=== PATIENT | female | born 1990 | race Caucasian/White ===

== ENCOUNTER 2020-07-11 03:41 | Emergency (ER) | payer OTHER ==
--- NOTE | 2020-07-11 04:03 | ED ---
General Adult HPI - General Stated complaint: Active Labor Time Seen by Provider: 07/11/20 03:49 Source: patient Mode of arrival: EMS Limitations: no limitations - History of Present Illness Initial comments: This patient is a 30-year-old woman, G3, P3, presenting with complaint that she believes she is in labor. The patient stated that she felt like her water broke yesterday. Tonight she noticed that she was having contractions there were getting closer together and they called EMS. EMS was transporting the patient to the labor and delivery unit when the patient precipitously delivered on arrival. Onset/Timin -: days(s) Location: abdomen Radiation: non-radiation Quality: other (Contractions) Consistency: intermittent Improves with: none Worsens with: none Associated Symptoms: denies other symptoms Treatments Prior to Arrival: none - Related Data Home Medications Medication Instructions Recorded Confirmed ALPRAZolam [Xanax] 2 mg PO TID PRN 05/25/15 05/25/15 Methylphenidate HCl [Ritalin] 20 mg PO QID 05/25/15 05/25/15 oxyCODONE HCL [Roxicodone] 30 mg PO TID PRN 05/25/15 05/25/15 Previous Rx's Medication Instructions Recorded Acetaminophen-Codeine 300-30mg 1 tab PO Q4H PRN #20 tablet 05/25/15 [Tylenol w/codeine #3] Allergies Allergy/AdvReac Type Severity Reaction Status Date / Time No Known Allergies Allergy Verified 05/25/15 13:13 Review of Systems ROS Statement: Those systems with pertinent positive or pertinent negative responses have been documented in the HPI. ROS Other: All systems not noted in ROS Statement are negative. Constitutional: Denies: fever, chills Respiratory: Denies: cough, dyspnea Cardiovascular: Denies: chest pain, palpitations, edema, syncope Gastrointestinal: Reports: abdominal pain. Denies: nausea, vomiting, diarrhea, constipation Genitourinary: Reports: as per HPI, other (Active labor) Musculoskeletal: Denies: back pain Skin: Denies: rash Neurological: Denies: headache, weakness Hematological/Lymphatic: Denies: easy bleeding Past Medical History Additional Past Medical History / Comment(s): Back pain; Herniated discs History of Any Multi-Drug Resistant Organisms: None Reported Past Surgical History: Adenoidectomy, Ear Surgery, Tonsillectomy Past Psychological History: ADD/ADHD, Anxiety Past Alcohol Use History: None Reported Past Drug Use History: None Reported General Exam General appearance: alert, in no apparent distress Head exam: Present: atraumatic, normocephalic Eye exam: Present: normal appearance. Absent: scleral icterus, conjunctival injection GI/Abdominal exam: Present: soft. Absent: distended, tenderness, guarding, rebound, rigid, mass, pulsatile mass External exam: Present: lacerations, other (Umbilical cord present.) Extremities exam: Present: normal inspection, normal capillary refill. Absent: pedal edema, calf tenderness Neurological exam: Present: alert Skin exam: Present: warm, dry, intact, normal color. Absent: rash Medical Decision Making - Medical Decision Making Patient is will directly to the trauma resuscitation room. Nursing staff was trying the baby while I suctioned. The umbilical cord was milked and clamped and then cut. At this point labor and delivery personnel had arrived and took the performing further warming, suctioning, and evaluation. Shortly af ter, the patient delivered placenta without complication. Labor and delivery personnel provided fundus massage. They were transferred to the labor and delivery unit. Disposition Clinical Impression: Normal spontaneous vaginal delivery Disposition: ADMITTED IP TO THIS HOSP Condition: Good Referrals: Gómez Salinas MD [Primary Care Provider] - 1-2 days
== END 2020-07-11 04:48 | disposition other institution (70) ==
LOC: EC 03:41
DX: O80 Encounter for full-term uncomplicated delivery (principal); Z37.0 Single live birth; Z3A.00 Weeks of gestation of pregnancy not specified; Z90.89 Acquired absence of other organs
CPT/HCPCS: 99284

== ENCOUNTER 2020-07-11 03:51 | Inpatient (IN) | payer OTHER ==
[2020-07-11 04:19] LABS: Basophils # (A) 0.1 k/uL (0-0.2); Basophils % (A) 0 %; Eosinophils # (A) 0.2 k/uL (0-0.7); Eosinophils % (A) 1 %; HCT 37.6 % (34.0-46.0); HGB 12.9 gm/dL (11.4-16.0); Lymphocytes # (A) 0.6 k/uL (1.0-4.8); Lymphocytes % (A) 3 %; MCH 30.2 pg (25.0-35.0); MCHC 34.3 g/dL (31.0-37.0); Monocytes # (A) 0.6 k/uL (0-1.0); Monocytes % (A) 3 %; Neutrophils # (A) 17.3 k/uL (1.3-7.7); Neutrophils % (A) 92 %; Platelet Count 158 k/uL (150-450); RBC 4.27 m/uL (3.80-5.40); RDW 12.8 % (11.5-15.5); WBC 18.9 k/uL (3.8-10.6)
[2020-07-11] MEDS ORDERED: ZOLPIDEM 5 MG TAB PO PRN (05:00)
[2020-07-11] MEDS ORDERED: ACETAMINOPHEN TAB 325 MG TAB PO PRN (05:00)
[2020-07-11] MEDS ORDERED: IBUPROFEN 600 MG TAB PO PRN (05:00)
[2020-07-11] MEDS ORDERED: LANOLIN CREAM 5 GM TUBE TOPICAL PRN (05:00)
[2020-07-11] MEDS ORDERED: BENZOCAINE/MENTHOL SPRAY 1 GM/SPRAY AEROSOL TOPICAL PRN (05:00)
[2020-07-11] MEDS ORDERED: OXYTOCIN 20 UNITS/1000 ML NS 1,000 ML IV SCH ×2 (05:00→05:51)
[2020-07-11] MEDS ORDERED: diphenhydrAMINE 50 MG/ML 1 ML VIAL IVP PRN ×2 (05:00)
[2020-07-11] MEDS ORDERED: SIMETHICONE 80 MG CHEWABLE PO PRN (05:00)
[2020-07-11] MEDS ORDERED: diphenhydrAMINE 50 MG CAP PO PRN (05:00)
[2020-07-11] MEDS ORDERED: HYDROCORTISONE 2.5% RECTAL CREAM 30 GM TUBE RECTAL PRN (05:00)
[2020-07-11] MEDS ORDERED: diphenhydrAMINE 25 MG CAP PO PRN (05:00)
[2020-07-11 05:14] LABS: Basophils % (A) 0 %; Eosinophils # (A) 0.1 k/uL (0-0.7); Eosinophils % (A) 1 %; HCT 35.3 % (34.0-46.0); HGB 12.2 gm/dL (11.4-16.0); Lymphocytes # (A) 0.6 k/uL (1.0-4.8); Lymphocytes % (A) 4 %; MCH 30.3 pg (25.0-35.0); MCHC 34.4 g/dL (31.0-37.0); Mean Platelet Volume 11.4; Monocytes # (A) 0.6 k/uL (0-1.0); Monocytes % (A) 3 %; Neutrophils # (A) 15.9 k/uL (1.3-7.7); Neutrophils % (A) 92 %; Platelet Count 131 k/uL (150-450); RBC 4.02 m/uL (3.80-5.40); RDW 12.8 % (11.5-15.5); WBC 17.3 k/uL (3.8-10.6)
--- NOTE | 2020-07-11 05:17 | P.HPOB ---
History of Present Illness H&P Date: 07/11/20 Chief Complaint: Delivery in ER This is a 30-year-old female 3 para 3 who presented by ambulance to the emergency room and delivered right as she arrived in the emergency room. She states that she went to [facility] and saw director learning a few times before she moved to this area. She states she moved here in February. She did have an ultrasound at [facility] a couple months ago. She states the original due date that [facility] gave her was July 22 and that [facility] told her the due date was July 31. She states her water broke 2 days ago at approximately 8 PM in the evening on July 09. She started feeling contractions yesterday. She states the pain got intense to the point that she felt she needed to call somebody about an hour before the ambulance arrived. She told the nursing staff that she does not have custody of her other 2 children. She delivered 1 child here at [facility] and another child at [facility]. The patient spontaneously delivered vaginally in the ER a viable male infant at 3:42 AM followed by the placenta at 3:46 AM. Infant scores are 8 at 1 minute and 9 at 5 minutes and weight is 6 pounds 7.7 ounces. There was a foul odor to the according to nursing staff. Infant has been taken to level I nursery for evaluation. Obstetrical history: P3. History of 2 vaginal deliveries at term prior to this . History of 1 vaginal delivery in the emergency room today. Gynecologic history: No history of sexually transmitted diseases. Review of Systems Constitutional: Denies chills, Denies fever Eyes: denies blurred vision, denies pain Ears, nose, mouth and throat: Denies headache, Denies sore throat Cardiovascular: Denies chest pain, Denies shortness of breath Respiratory: Denies cough Gastrointestinal: Reports abdominal pain Genitourinary: Reports pelvic pain, Reports (Immediately ) Musculoskeletal: Reports low back pain Integumentary: Denies pruritus, Denies rash Neurological: Denies numbness, Denies weakness Past Medical History Additional Past Medical History / Comment(s): Back pain; Herniated discs History of Any Multi-Drug Resistant Organisms: None Reported Past Surgical History: Adenoidectomy, Ear Surgery, Tonsillectomy Past Psychological History: ADD/ADHD, Anxiety Smoking Status: Current every day smoker Past Alcohol Use History: None Reported Past Drug Use History: None Reported - Past Family History Mother Family Medical History: Cancer (Lung cancer) Medications and Allergies Home Medications Medication Instructions Recorded Confirmed Type ALPRAZolam [Xanax] 2 mg PO TID PRN 05/25/15 05/25/15 History Acetaminophen-Codeine 300-30mg 1 tab PO Q4H PRN #20 tablet 05/25/15 Rx [Tylenol w/codeine #3] Methylphenidate HCl [Ritalin] 20 mg PO QID 05/25/15 05/25/15 History oxyCODONE HCL [Roxicodone] 30 mg PO TID PRN 05/25/15 05/25/15 History Allergies Allergy/AdvReac Type Severity Reaction Status Date / Time No Known Allergies Allergy Verified 07/11/20 04:04 Exam Osteopathic Statement: *. No significant issues noted on an osteopathic structural exam other than those noted in the History and Physical/Consult. Vital Signs Temp Pulse Resp BP 07/11/20 04:45 50 L 20 127/77 07/11/20 04:30 63 20 126/74 07/11/20 04:15 98.8 F 61 20 133/79 07/11/20 04:00 73 20 121/79 Intake and Output 07/10/20 07/10/20 07/11/20 14:59 22:59 06:59 Other: Weight 77.111 kg Gen.: Well-developed well-nourished white female who appears very drowsy and groggy and hard to arouse to answer questions HEENT: Poor dentition with only a few teeth Heart: Regular rate and rhythm Lungs: Clear to auscultation bilaterally Abdomen: Soft, mildly tender over her fundal region. Fundus is firm and just below the umbilicus Pelvic exam: Perineum is inspected and there are a few superficial cuts. One was bleeding minimally but the patient refused any stitches. No active vaginal bleeding is noted. Extremities: Lower extremities show 2+ pitting edema Results Result Diagrams: 07/11/20 04:10 Abnormal Lab Results - Last 24 Hours (Table) 07/11/20 Range/Units 04:10 WBC 18.9 H (3.8-10.6) k/uL Neutrophils # 17.3 H (1.3-7.7) k/uL Lymphocytes # 0.6 L (1.0-4.8) k/uL Assessment and Plan (1) Limited care in third trimester Current Visit: Yes Status: Acute Code(s): O09.33 - SUPRVSN OF PREG W INSUFFICIENT ANTENAT CARE, THIRD TRIMESTER SNOMED Code(s): 241401565 (2) Normal spontaneous vaginal delivery Current Visit: No Status: Acute Code(s): O80 - ENCOUNTER FOR FULL-TERM UNCOMPLICATED DELIVERY SNOMED Code(s): 85560878 Plan: Admission for care status post vaginal delivery in emergency room. Will obtain all labs and urine drug screen. Will consult social work case manager due to no custody of her other children. Baby will be evaluated in level I nursery due to prolonged rupture of membranes and limited care.
[2020-07-11] MEDS: LACTATED RINGERS 1,000 ML IV SCH ×3 (06:03→21:21)
[2020-07-11 10:06] LABS: Hepatitis B Surface Antigen Non-Reactive (Non-Reactive)
[2020-07-11] MEDS: SENNOSIDES-DOCUSATE SODIUM 1 EACH TAB PO SCH ×2 (12:27→21:21)
[2020-07-11] MEDS: ONDANSETRON 4 MG/2 ML VIAL IVP PRN ×2 (15:03→21:41)
[2020-07-11 16:33] LABS: Appearance,Urine Cloudy (Clear); Bilirubin,Urine Negative (Negative); Blood,Urine Moderate (Negative); Color,Urine Yellow; Glucose,Urine (UA) Negative (Negative); Ketones,Urine 3+ (Negative); Leukocyte Esterase,Urine Large (Negative); Mucus,Urine Occasional /hpf; Nitrite,Urine Negative (Negative); PH, Urine 6.5 (5.0-8.0); Protein,Urine 1+ (Negative); RBC,Urine >182 /hpf (0-5); Specific Gravity,Urine 1.031 (1.001-1.035); Squamous Epithelial Cell,Urine 2 /hpf (0-4); Urobilinogen,Urine <2.0 mg/dL (<2.0); WBC,Urine 44 /hpf (0-5)
[2020-07-11 16:34] LABS: Phencyclidine Screen,Urine Not Detected (NotDetected); Urn Cannabinoid Scrn Detected (NotDetected)
[2020-07-11 16:35] LABS: Amphetamine Screen,Urine Not Detected (NotDetected); Barbiturate Screen,Urine Not Detected (NotDetected); Benzodiazepines Screen,Urine Not Detected (NotDetected); Cocaine Screen,Urine Detected (NotDetected); Methadone Screen, Urine Not Detected (NotDetected); Opiate Screen,Urine Not Detected (NotDetected); Oxycodone Screen, Urine Not Detected (NotDetected); Tricyclic Antidepressant,Urine Not Detected (NotDetected)
[2020-07-12] MEDS: ONDANSETRON 4 MG/2 ML VIAL IVP PRN ×2 (04:27→09:07)
[2020-07-12] MEDS: LACTATED RINGERS 1,000 ML IV SCH ×2 (05:04→11:53)
[2020-07-12] MEDS ORDERED: GENTAMICIN PER PHARMACY MISCELLANE SCH (08:00)
[2020-07-12 08:16] LABS: Basophils % (A) 0 %; Eosinophils % (A) 0 %; HCT 33.5 % (34.0-46.0); HGB 11.1 gm/dL (11.4-16.0); Lymphocytes # (A) 1.3 k/uL (1.0-4.8); Lymphocytes % (A) 8 %; MCH 28.8 pg (25.0-35.0); MCHC 33.2 g/dL (31.0-37.0); MCV 86.7 fL (80.0-100.0); Mean Platelet Volume 12.6; Monocytes # (A) 0.5 k/uL (0-1.0); Monocytes % (A) 3 %; Neutrophils % (A) 88 %; Platelet Count 153 k/uL (150-450); RBC 3.87 m/uL (3.80-5.40); RDW 13.4 % (11.5-15.5)
[2020-07-12 08:25] LABS: African American GFR (CKD) >90 (>60 ml/min/1.73 sqM); Non-African American GFR(CKD) >90 (>60 ml/min/1.73 sqM)
--- NOTE | 2020-07-12 08:27 | P.PNOBGVD ---
Subjective - Subjective Patient reports: Reports appetite normal, Reports voiding normally, Reports pain well controlled, Reports ambulating normally, Reports nauseated, Reports other : doing well, in NICU Objective - Latest Vital Signs Latest vital signs: Vital Signs Temp Pulse Resp BP Pulse Ox 07/12/20 04:00 99.1 F 07/11/20 22:34 100 F H 57 L 18 119/63 96 07/11/20 15:34 99.3 F 56 L 18 113/68 07/11/20 12:34 99.8 F H 60 18 130/75 98 07/11/20 11:15 99.8 F H 07/11/20 08:57 99.3 F Intake and Output 07/11/20 07/12/20 07/12/20 22:59 06:59 14:59 Output Total 300 Balance -300 Output: Emesis 300 Other: # Voids 3 3 - Exam Lungs: bilateral: normal Chest: Normal S1, Normal S2 Extremities: Present: normal Abdomen: Present: normal appearance, soft Uterus: Present: normal, firm, tenderness - Labs Labs: Abnormal Lab Results - Last 24 Hours (Table) 07/11/20 Range/Units 16:10 Urine Appearance Cloudy H (Clear) Urine Protein 1+ H (Negative) Urine Ketones 3+ H (Negative) Urine Blood Moderate H (Negative) Ur Leukocyte Esterase Large H (Negative) Urine RBC >182 H (0-5) /hpf Urine WBC 44 H (0-5) /hpf Urine Mucus Occasional H (None) /hpf U Methamphetamines Scrn Detected H (NotDetected) Urine Cocaine Screen Detected H (NotDetected) U Marijuana (THC) Screen Detected H (NotDetected) Assessment and Plan Assessment: Hospital day #2. Patient is status post vaginal delivery in the emergency department (please see Dr. Obrien admission history and physical). In brief summary this patient was admitted with no care and precipitously delivered in the emergency department. Notes from the emergency department indicate that there was a foul odor at the time of delivery and patient was probably ruptured for at least 2 days. Patient's white blood cell count was elevated on admission and patient also has continued to have a low-grade temperature as high as 100. Yesterday I placed her on IV Ancef due to concern for endometritis. Patient's toxicology screen also has come back positive for cocaine, amphetamines, and marijuana. Patient continues to have some nausea and vomiting and examination shows mild uterine tenderness. She does not have any right lower quadrant tenderness. Patient's been very noncompliant with her care and she initially refused IV antibiotics for over 2 hours after they were ordered. She also refused to have her blood drawn this morning. After speaking to her I explained the importance of treating her endometritis and the need for following her white blood cell count and continuing IV antibiotics. At this point she is consented seen to having her blood redrawn. Because of the prolonged rupture and prolonged low-grade temperature with nausea and vomiting I'm going to add gentamicin to her antibiotic regimen. Once again, I explained all this to the patient. She continues to be resistant to being treated and oftentimes is inappropriately mean in to Hospital staff. Reports from the emergency department Dr. Obrien is that her placenta was completely removed. If however she continues to have temperatures with nausea and vomiting I am most likely will proceed with further imaging by abdominal pelvic CT. (1) Limited care in third trimester Current Visit: Yes Status: Acute Code(s): O09.33 - SUPRVSN OF PREG W INSUFFICIENT ANTENAT CARE, THIRD TRIMESTER SNOMED Code(s): 261815654 (2) Endometritis following delivery Current Visit: Yes Status: Acute Code(s): O86.12 - ENDOMETRITIS FOLLOWING DELIVERY SNOMED Code(s): 228396322 (3) Noncompliance by refusing intervention or support Current Visit: Yes Status: Acute Code(s): Z53.29 - PROC/TRTMT NOT CRD OUT BEC PT DECISION FOR OTH REASONS SNOMED Code(s): 609511328
[2020-07-12 08:42] LABS: Large Platelets Present
[2020-07-12] MEDS ORDERED: GENTAMICIN 120 MG in SODIUM CHLORIDE 0.9% 100 ML IVPB ONE (09:00)
[2020-07-12] MEDS: SENNOSIDES-DOCUSATE SODIUM 1 EACH TAB PO SCH ×2 (09:32→21:03)
[2020-07-12] MEDS: GENTAMICIN 120 MG in SODIUM CHLORIDE 0.9% 100 ML IVPB SCH (16:59)
[2020-07-13] MEDS: GENTAMICIN 120 MG in SODIUM CHLORIDE 0.9% 100 ML IVPB SCH ×3 (00:47→17:35)
[2020-07-13 04:41] LABS: Basophils % (A) 0 %; Eosinophils # (A) 0.3 k/uL (0-0.7); Eosinophils % (A) 2 %; HCT 36.4 % (34.0-46.0); HGB 12.1 gm/dL (11.4-16.0); Lymphocytes # (A) 2.9 k/uL (1.0-4.8); Lymphocytes % (A) 21 %; MCH 29.6 pg (25.0-35.0); MCHC 33.4 g/dL (31.0-37.0); MCV 88.7 fL (80.0-100.0); Mean Platelet Volume 10.3; Monocytes # (A) 0.5 k/uL (0-1.0); Monocytes % (A) 4 %; Neutrophils % (A) 73 %; Platelet Count 167 k/uL (150-450); RDW 12.9 % (11.5-15.5); WBC 13.8 k/uL (3.8-10.6)
[2020-07-13 05:00] LABS: African American GFR (CKD) >90 (>60 ml/min/1.73 sqM); Non-African American GFR(CKD) >90 (>60 ml/min/1.73 sqM)
--- NOTE | 2020-07-13 06:49 | P.PNOBGVD ---
Subjective - Subjective Patient reports: Reports appetite normal, Reports voiding normally, Reports pain well controlled, Reports ambulating normally : doing well, in NICU Objective - Latest Vital Signs Latest vital signs: Vital Signs Temp Pulse Resp BP Pulse Ox 07/13/20 04:00 97.6 F 74 16 105/67 07/13/20 00:00 98.4 F 93 16 130/82 97 07/12/20 20:00 97.7 F 73 16 100/68 07/12/20 16:00 98.6 F 61 16 125/86 99 07/12/20 12:00 99.1 F 60 18 120/80 97 07/12/20 08:00 99 F 58 L 18 117/75 98 Intake and Output 07/12/20 07/12/20 07/13/20 14:59 22:59 06:59 Other: # Voids 1 1 3 - Exam Lungs: bilateral: normal Chest: Normal S1, Normal S2 Extremities: Present: normal Abdomen: Present: normal appearance, soft Uterus: Present: normal, firm - Labs Labs: Abnormal Lab Results - Last 24 Hours (Table) 07/12/20 07/13/20 Range/Units 08:02 04:30 WBC 16.0 H 13.8 H (3.8-10.6) k/uL Hgb 11.1 L (11.4-16.0) gm/dL Hct 33.5 L (34.0-46.0) % Neutrophils # 14.0 H 10.0 H (1.3-7.7) k/uL Assessment and Plan Assessment: day #2. Patient is sleeping without new complaints. Patient continued to have low-grade temperatures until about noon yesterday and she has been afebrile since then. I did add gentamicin to her antibiotic regimen this appears to be working well. White blood cell count was down to 13.8 today. Patient denies any abdominal pain. She is having normal lochia. My impression this is a resolving endometritis. Plan is to continue IV antibiotics at least until tomorrow and then changed over to oral antibiotics at that time. Repeat CBC in the morning. (1) Limited care in third trimester Current Visit: Yes Status: Acute Code(s): O09.33 - SUPRVSN OF PREG W INSUFFICIENT ANTENAT CARE, THIRD TRIMESTER SNOMED Code(s): 890967745 (2) Endometritis following delivery Current Visit: Yes Status: Acute Code(s): O86.12 - ENDOMETRITIS FOLLOWING DELIVERY SNOMED Code(s): 055984681 (3) Noncompliance by refusing intervention or support Current Visit: Yes Status: Acute Code(s): Z53.29 - PROC/TRTMT NOT CRD OUT BEC PT DECISION FOR OTH REASONS SNOMED Code(s): 009789413
[2020-07-13] MEDS: SENNOSIDES-DOCUSATE SODIUM 1 EACH TAB PO SCH ×2 (08:00→22:54)
[2020-07-13] MEDS ORDERED: GENTAMICIN TROUGH DUE 1 EACH MISC MISCELLANE ONE (08:30)
[2020-07-13] MEDS ORDERED: GENTAMICIN PEAK DUE 1 EACH MISC MISCELLANE ONE (11:00)
[2020-07-13] MEDS: LACTATED RINGERS 1,000 ML IV SCH ×2 (20:54→22:53)
[2020-07-14 00:09] VITALS: RESP 16
[2020-07-14] MEDS: GENTAMICIN 120 MG in SODIUM CHLORIDE 0.9% 100 ML IVPB SCH (01:04)
--- NOTE | 2020-07-14 05:45 | P.PNOBGVD ---
Subjective - Subjective Patient reports: Reports appetite normal, Reports voiding normally, Reports pain well controlled, Reports ambulating normally : doing well, in NICU Objective - Latest Vital Signs Latest vital signs: Vital Signs Temp Pulse Resp BP Pulse Ox 07/14/20 00:00 98.2 F 63 16 119/75 07/13/20 16:00 98.4 F 67 18 128/75 99 07/13/20 13:54 98.8 F 57 L 18 130/80 97 07/13/20 08:00 98.3 F 67 18 99/64 96 Intake and Output 07/13/20 07/13/20 07/14/20 14:59 22:59 06:59 Other: # Voids 0 1 2 - Exam Lungs: bilateral: normal Chest: Normal S1, Normal S2 Extremities: Present: normal Abdomen: Present: normal appearance, soft Uterus: Present: normal, firm Assessment and Plan Assessment: Patient is resting without complaints. Vital signs are stable she's been afebrile for over 24 hours. Patient is tolerating regular diet, ambulating, urinating without difficulty. Patient's felt be stable for discharge home follow up with her primary physician. Discharge home on oral antibiotics for 7 days. (1) Limited care in third trimester Current Visit: Yes Status: Acute Code(s): O09.33 - SUPRVSN OF PREG W INSUFFICIENT ANTENAT CARE, THIRD TRIMESTER SNOMED Code(s): 257963877 (2) Endometritis following delivery Current Visit: Yes Status: Acute Code(s): O86.12 - ENDOMETRITIS FOLLOWING DELIVERY SNOMED Code(s): 990191116 (3) Noncompliance by refusing intervention or support Current Visit: Yes Status: Acute Code(s): Z53.29 - PROC/TRTMT NOT CRD OUT BEC PT DECISION FOR OTH REASONS SNOMED Code(s): 974091959
--- NOTE | 2020-07-14 05:55 | P.DS ---
Providers Date of admission: 07/11/20 03:51 Expected date of discharge: 07/14/20 Attending physician: Marie Obrien Primary care physician: Stated None - Discharge Diagnosis(es) (1) Limited care in third trimester Current Visit: Yes Status: Acute (2) Endometritis following delivery Current Visit: Yes Status: Acute (3) Noncompliance by refusing intervention or support Current Visit: Yes Status: Acute Hospital Course: Please see dictated H&P by Dr. Obrien on this patient's admission. Brief summary this is a 30-year-old 3 para 2 female with no care locally who had a precipitous delivery of a viable male infant emergency department. The time of delivery patient was noted to have foul fluid. She also had a positive toxicology screen for polysubstance's. Patient developed a temperature nausea vomiting thought to be consistent with endometritis. Patient was initially placed on Ancef continued to have temperatures therefore I added and gentamicin. After that time patient defervesced quickly and was felt to be stable for discharge home on oral antibiotics. Instructed follow-up with her primary physician/casino supervisor short-term for care. Patient Condition at Discharge: Good Plan - Discharge Summary New Discharge Prescriptions: New Ibuprofen [Motrin] 600 mg PO Q6HR PRN #30 tab PRN Reason: Mild Pain Or Fever >= 100.5 Amoxicillin/Potassium Clav [Augmentin 875-125 Tablet] 1 tab PO BID 7 Days #14 tab Discharge Medication List Amoxicillin/Potassium Clav [Augmentin 875-125 Tablet] 1 tab PO BID 7 Days #14 tab 07/14/20 [Rx] Ibuprofen [Motrin] 600 mg PO Q6HR PRN #30 tab 07/14/20 [Rx] Patient Instructions/Handouts: Vaginal Delivery (DC) Activity/Diet/Wound Care/Special Instructions: No intercourse or anything per vagina for 6 weeks. Please call if any fever, chills, excessive vaginal bleeding, and/or abdominal pain. Please follow up with your primary clinic/casino supervisor upon discharge. Please take your oral antibiotics for 7 days. Discharge Disposition: HOME SELF-CARE
[2020-07-14 06:24] LABS: Basophils % (A) 0 %; Eosinophils # (A) 0.2 k/uL (0-0.7); Eosinophils % (A) 3 %; HCT 31.7 % (34.0-46.0); HGB 10.7 gm/dL (11.4-16.0); Lymphocytes # (A) 2.6 k/uL (1.0-4.8); Lymphocytes % (A) 30 %; MCH 30.3 pg (25.0-35.0); MCHC 33.8 g/dL (31.0-37.0); MCV 89.8 fL (80.0-100.0); Mean Platelet Volume 9.6; Monocytes # (A) 0.5 k/uL (0-1.0); Monocytes % (A) 5 %; Neutrophils # (A) 5.2 k/uL (1.3-7.7); Neutrophils % (A) 60 %; Platelet Count 159 k/uL (150-450); RBC 3.53 m/uL (3.80-5.40); WBC 8.6 k/uL (3.8-10.6)
[2020-07-14 06:32] LABS: African American GFR (CKD) >90 (>60 ml/min/1.73 sqM); Non-African American GFR(CKD) >90 (>60 ml/min/1.73 sqM)
[2020-07-14] MEDS: LACTATED RINGERS 1,000 ML IV SCH ×2 (06:43→06:44)
[2020-07-14 08:28] VITALS: BP 128/82; PULSE 88; TEMP 98.1
[2020-07-14] MEDS: SENNOSIDES-DOCUSATE SODIUM 1 EACH TAB PO SCH (08:40)
[2020-07-14 12:07] LABS: HIV 2 AB Non-Reactive (Non-Reactive); HIV AB P24 Non-Reactive (Non-Reactive); HIV P24 AG Non-Reactive (Non-Reactive)
[2020-07-14 15:51] LABS: C. trachomatis,PCR Negative (Neg,Equiv); Chlamydia trachomatis Source Urine; N. gonorrhoeae,PCR Negative (Neg,Equiv); Neisseria Source Urine
== END 2020-07-14 09:31 | disposition home or self-care (01) | DRG 806 ==
LOC: 4FBP 03:51
PROVIDERS: ADMIT Obstetrics & Gynecology; ATTEND Obstetrics & Gynecology
PROC: 10E0XZZ Delivery of Products of Conception, External Approach (ICD-10-PCS; principal; 2020-07-11)
DX: O62.3 Precipitate labor (principal); O86.12 Endometritis following delivery; Z37.0 Single live birth; O99.324 Drug use complicating childbirth; O42.90 Premature rupture of membranes, unspecified as to length of time between rupture and onset of labor, unspecified weeks of gestation; O99.334 Smoking (tobacco) complicating childbirth; O99.344 Other mental disorders complicating childbirth; O09.33 Supervision of pregnancy with insufficient antenatal care, third trimester; F17.210 Nicotine dependence, cigarettes, uncomplicated; F19.10 Other psychoactive substance abuse, uncomplicated; F41.9 Anxiety disorder, unspecified; O70.9 Perineal laceration during delivery, unspecified; F90.9 Attention-deficit hyperactivity disorder, unspecified type; Z20.822 Contact with and (suspected) exposure to COVID-19; Z80.1 Family history of malignant neoplasm of trachea, bronchus and lung; Z91.19 Patient's noncompliance with other medical treatment and regimen; Z90.49 Acquired absence of other specified parts of digestive tract; Z90.89 Acquired absence of other organs; K00.0 Anodontia
CPT/HCPCS: 80170; 80306; 81001; 82565; 82947; 85025; 86762; 86780; 86850; 86900; 86901; 87340; 87390; 87491; 87591; 87635; 88307

== ENCOUNTER 2021-01-31 17:40 | Emergency (ER) | payer OTHER ==
[2021-01-31 17:50] VITALS: BP 137/84; PULSE 60; RESP 16; TEMP 98
[2021-01-31] MEDS ORDERED: SODIUM CHLORIDE 0.9% 1,000 ML IV ONE (17:55)
[2021-01-31 18:17] LABS: Anisocytosis Slight; Basophils % (A) 0 %; Eosinophils # (A) 0.1 k/uL (0-0.7); Eosinophils % (A) 1 %; HCT 47.3 % (34.0-46.0); HGB 16.1 gm/dL (11.4-16.0); Lymphocytes # (A) 1.7 k/uL (1.0-4.8); Lymphocytes % (A) 14 %; MCH 28.4 pg (25.0-35.0); MCV 83.5 fL (80.0-100.0); Mean Platelet Volume 9.9; Monocytes # (A) 0.4 k/uL (0-1.0); Monocytes % (A) 3 %; Neutrophils % (A) 81 %; Platelet Count 213 k/uL (150-450); RBC 5.67 m/uL (3.80-5.40); RDW 16.3 % (11.5-15.5); WBC 12.3 k/uL (3.8-10.6)
[2021-01-31 18:27] LABS: ALT 14 U/L (4-34); AST 20 U/L (14-36); African American GFR (CKD) >90 (>60 ml/min/1.73 sqM); Albumin 4.2 g/dL (3.5-5.0); Alkaline Phosphatase 88 U/L (38-126); Anion Gap 10 mmol/L; Blood Urea Nitrogen 5 mg/dL (7-17); Calcium 9.4 mg/dL (8.4-10.2); Carbon Dioxide 20 mmol/L (22-30); Chloride 107 mmol/L (98-107); Glucose 132 mg/dL (74-99); Non-African American GFR(CKD) >90 (>60 ml/min/1.73 sqM); Potassium 3.7 mmol/L (3.5-5.1); Prothrombin Time 10.6 sec (9.0-12.0); Sodium 137 mmol/L (137-145); Total Bilirubin 0.7 mg/dL (0.2-1.3); Total Protein 6.9 g/dL (6.3-8.2)
--- NOTE | 2021-01-31 18:35 | ED ---
Female Urogenital HPI - General Chief complaint: Vaginal Bleeding Stated complaint: withdrawals, vomiting, preg/bleeding Time Seen by Provider: 01/31/21 17:54 Source: patient Mode of arrival: ambulatory Limitations: no limitations - History of Present Illness Initial comments: Lauren is a female who believes her last period was sometime last month, she apparently has had a positive home test and today developed some vaginal bleeding. Patient does note that she has had a relapse and has been using hair when, she found that she is so she stopped using heroin 4 days ago. She is actively going through withdrawals. She reports nausea, vomiting, piloerection, chills. Patient has received no care in this , no care in her previous and had a precipitous delivery with EMS on . Unfortunately that baby at 5 months old she believes it was due to SIDS. - Related Data Previous Rx's Medication Instructions Recorded Amoxicillin/Potassium Clav 1 tab PO BID 7 Days #14 tab 07/14/20 [Augmentin 875-125 Tablet] Ibuprofen [Motrin] 600 mg PO Q6HR PRN #30 tab 07/14/20 Allergies Allergy/AdvReac Type Severity Reaction Status Date / Time No Known Allergies Allergy Verified 01/31/21 17:49 Review of Systems ROS Statement: Those systems with pertinent positive or pertinent negative responses have been documented in the HPI. ROS Other: All systems not noted in ROS Statement are negative. Past Medical History Additional Past Medical History / Comment(s): Back pain; Herniated discs History of Any Multi-Drug Resistant Organisms: None Reported Past Surgical History: Adenoidectomy, Ear Surgery, Tonsillectomy Past Psychological History: ADD/ADHD, Anxiety Smoking Status: Current every day smoker Past Alcohol Use History: None Reported Past Drug Use History: Heroin - Past Family History Mother Family Medical History: Cancer (Lung cancer) General Exam - General Exam Comments Initial Comments: Physical Exam GENERAL: Agitated, nauseated, heaving, sweating HENT: Normocephalic, Atraumatic. EYES: PERRL, EOMI PULMONARY: Unlabored respirations. No audible rales rhonchi or wheezing was noted. CARDIOVASCULAR: Tachycardic, regular ABDOMEN: Soft and nontender with normal bowel sounds. Bedside US with no free fluid, no fetus visible in uterus SKIN: Piloerection : Deferred NEUROLOGIC: Patient is alert and oriented x3. Moving all extremities spontaneously MUSCULOSKELETAL: Normal extremities with adequate strength and full range of motion. No lower extremity swelling or edema. No calf tenderness. PSYCHIATRIC: Agitated Limitations: no limitations Course Vital Signs 01/31/21 17:47 Temperature 98.0 F Pulse Rate 60 Respiratory 16 Rate Blood Pressure 137/84 O2 Sat by Pulse 100 Oximetry Medical Decision Making - Medical Decision Making The patient was seen and evaluated history was obtained from the patient and review of medical record Physical exam patient does appear to be withdrawing, she is sweating she has piloerection she feels nauseated. She is concerned about vaginal bleeding after having a positive test. Last month so she is very early in this . Bedside ultrasound was performed on initial exam, there is nothing visible in the uterus, there is no free fluid in the pelvis Beta hCG and ultrasound were obtained. HCG is only 400s for this likely nothing visible on ultrasound, transvaginal ultrasound was performed, patient did not tolerate the entire procedure but uterus was visualized and there was no intrauterine identified. Apparently patient then walked out of the room requesting nurse take out her IV because she wanted to leave. Nurse return to the room to remove the patient's IV and the patient had eloped from the emergency department. Per nursing staff they contacted the patient and advised that she had to return to the ER to ensure that her IV had been removed. Patient had reportedly taken out her IV in place in the sharps container, she did return to the ER and was evaluated by nursing staff who confirmed her IV was removed. Patient refused to sign AMA paperwork and again left the hospital. - Lab Data Result diagrams: 01/31/21 18:01 01/31/21 18:01 Lab Results 01/31/21 01/31/21 01/31/21 Range/Units 18:01 18:01 18:01 WBC 12.3 H (3.8-10.6) k/uL RBC 5.67 H (3.80-5.40) m/uL Hgb 16.1 H (11.4-16.0) gm/dL Hct 47.3 H (34.0-46.0) % MCV 83.5 (80.0-100.0) fL MCH 28.4 (25.0-35.0) pg MCHC 34.0 (31.0-37.0) g/dL RDW 16.3 H (11.5-15.5) % Plt Count 213 (150-450) k/uL MPV 9.9 Neutrophils % 81 % Lymphocytes % 14 % Monocytes % 3 % Eosinophils % 1 % Basophils % 0 % Neutrophils # 10.0 H (1.3-7.7) k/uL Lymphocytes # 1.7 (1.0-4.8) k/uL Monocytes # 0.4 (0-1.0) k/uL Eosinophils # 0.1 (0-0.7) k/uL Basophils # 0.0 (0-0.2) k/uL Anisocytosis Slight PT 10.6 (9.0-12.0) sec INR 1.0 (<1.2) Sodium 137 (137-145) mmol/L Potassium 3.7 (3.5-5.1) mmol/L Chloride 107 (98-107) mmol/L Carbon Dioxide 20 L (22-30) mmol/L Anion Gap 10 mmol/L BUN 5 L (7-17) mg/dL Creatinine 0.60 (0.52-1.04) mg/dL Est GFR (CKD-EPI)AfAm >90 (>60 ml/min/1.73 sqM) Est GFR (CKD-EPI)NonAf >90 (>60 ml/min/1.73 sqM) Glucose 132 H (74-99) mg/dL Calcium 9.4 (8.4-10.2) mg/dL Total Bilirubin 0.7 (0.2-1.3) mg/dL AST 20 (14-36) U/L ALT 14 (4-34) U/L Alkaline Phosphatase 88 (38-126) U/L Total Protein 6.9 (6.3-8.2) g/dL Albumin 4.2 (3.5-5.0) g/dL HCG, Quant 422.1 mIU/mL Blood Type Blood Type Recheck Bld Type Recheck Status 01/31/21 Range/Units 18:01 WBC (3.8-10.6) k/uL RBC (3.80-5.40) m/uL Hgb (11.4-16.0) gm/dL Hct (34.0-46.0) % MCV (80.0-100.0) fL MCH (25.0-35.0) pg MCHC (31.0-37.0) g/dL RDW (11.5-15.5) % Plt Count (150-450) k/uL MPV Neutrophils % % Lymphocytes % % Monocytes % % Eosinophils % % Basophils % % Neutrophils # (1.3-7.7) k/uL Lymphocytes # (1.0-4.8) k/uL Monocytes # (0-1.0) k/uL Eosinophils # (0-0.7) k/uL Basophils # (0-0.2) k/uL Anisocytosis PT (9.0-12.0) sec INR (<1.2) Sodium (137-145) mmol/L Potassium (3.5-5.1) mmol/L Chloride (98-107) mmol/L Carbon Dioxide (22-30) mmol/L Anion Gap mmol/L BUN (7-17) mg/dL Creatinine (0.52-1.04) mg/dL Est GFR (CKD-EPI)AfAm (>60 ml/min/1.73 sqM) Est GFR (CKD-EPI)NonAf (>60 ml/min/1.73 sqM) Glucose (74-99) mg/dL Calcium (8.4-10.2) mg/dL Total Bilirubin (0.2-1.3) mg/dL AST (14-36) U/L ALT (4-34) U/L Alkaline Phosphatase (38-126) U/L Total Protein (6.3-8.2) g/dL Albumin (3.5-5.0) g/dL HCG, Quant mIU/mL Blood Type O Positive Blood Type Recheck O Pos Bld Type Recheck Status No Disposition Clinical Impression: Vaginal bleeding before 22 weeks gestation, Opiate withdrawal Disposition: HOME SELF-CARE Condition: Stable Is patient prescribed a controlled substance at d/c from ED?: No Referrals: None,Stated [Primary Care Provider] - 1-2 days
[2021-01-31 18:44] LABS: HCG,Quantitative Serum 422.1 mIU/mL
--- NOTE | 2021-01-31 19:39 | US ---
EXAMINATION TYPE: Transabdominal DATE OF EXAM: 01/31/2021 6:14 PM COMPARISON: NONE CLINICAL HISTORY: vaginal bleeding. Unknown LMP. Spotting today. Patient is withdrawing and detoxin g. Patient was uncooperative during exam and wanted exam to end. Transvaginal exam not attempted. EXAM PERFORMED: Transabdominal (TA) EXAM MEASUREMENTS: GESTATIONAL AGE / DATING Physician Established: Not yet established Dates by LMP: LMP unknown Dates by First Scan: No previous this is first scan Dates by Current Scan for: No IUP seen at this time MATERNAL ANATOMY Uterus: 7.6 x 5.2 x 3.6 cm Right Ovary: 2.9 x 1.8 x 2.0 cm Left Ovary: 3.4 x 2.0 x 1.9 cm Post CDS / Adnexa: no free fluid Presence of free fluid: no GESTATION / SURVEY IUP: No IUP seen at this time Date of LMP: unknown, Beta HcG (if available): 422.1 No GS, YS or CRL visualized within endometrial canal. IMPRESSION: Empty uterus. No adnexal mass.
== END 2021-01-31 20:20 | disposition home or self-care (01) ==
LOC: EC 17:40
DX: O46.90 Antepartum hemorrhage, unspecified, unspecified trimester (principal); O99.320 Drug use complicating pregnancy, unspecified trimester; O21.9 Vomiting of pregnancy, unspecified; O99.330 Smoking (tobacco) complicating pregnancy, unspecified trimester; F11.23 Opioid dependence with withdrawal; F17.200 Nicotine dependence, unspecified, uncomplicated; Z67.40 Type O blood, Rh positive; Z3A.00 Weeks of gestation of pregnancy not specified
CPT/HCPCS: 36415; 76801; 80053; 84702; 85025; 85610; 86900; 86901; 96360; 99284